=== PATIENT | male | born 1945 | race Caucasian/White ===

== ENCOUNTER → 2017-06-29 | Outpatient (CLI) | payer MEDICARE | END | disposition home or self-care (01) | LOC: CFH 08:24 | PROVIDERS: ATTEND Nurse Practitioner Family | DX: I25.10 Atherosclerotic heart disease of native coronary artery without angina pectoris (principal); I10 Essential (primary) hypertension | CPT/HCPCS: 78452; 93017; A9502 ==

== ENCOUNTER 2019-06-16 14:41 | Outpatient (CLI) | payer MEDICARE | END 2019-06-16 23:59 | disposition home or self-care (01) | LOC: CVU 14:41 | PROVIDERS: ATTEND Nurse Practitioner Family | DX: I65.23 Occlusion and stenosis of bilateral carotid arteries (principal); I10 Essential (primary) hypertension; E78.5 Hyperlipidemia, unspecified | CPT/HCPCS: 93880 ==